=== PATIENT | female | born 1965 | race Caucasian/White ===

== ENCOUNTER 2016-07-25 11:30 | Outpatient (CLI) ==
[2015-02-06 08:04] VITALS: BMI 27.4
--- NOTE | 2016-07-25 12:21 | DI ---
EXAM: PA and lateral views of the chest HISTORY: Cough. COMPARISON: None FINDINGS: The cardiomediastinal silhouette is normal. There is no pneumothorax or pleural effusion . There is no consolidation, nodule or mass. The osseous structures are unremarkable. IMPRESSION: No acute cardiopulmonary process
== END 2016-07-25 11:31 | disposition home or self-care (01) ==
LOC: RAD 11:30
PROVIDERS: ATTEND Nurse Practitioner Family
DX: R05 Cough (principal)

== ENCOUNTER 2017-07-11 06:24 | Day surgery (SDC) ==
[2015-02-06 08:04] VITALS: BMI 27.4
[2017-07-11] MEDS ORDERED: LIDOCAINE 1% 20 ML MDV ID STA (07:04)
[2017-07-11] MEDS ORDERED: LIDOCAINE 1% 20 ML MDV ID ONE (07:15)
[2017-07-11] MEDS ORDERED: VERSED ONE (08:15)
[2017-07-11] MEDS ORDERED: DIPRIVAN 20 ML VIAL IVP ONE (08:15)
--- NOTE | 2017-07-12 08:50 | OP ---
INDICATIONS FOR PROCEDURE: 51 year old female presents for screening colonoscopy MEDICATIONS: SEE ANESTHESIA NOTES. PROCEDURE: COLONOSCOPY/SNARE POLYPECTOMY. REPORT: The risks, benefits, alternatives and limitations were discussed in detail with the patient. Informed consent was obtained. After adequate sedation was achieved, a digital rectal exam revealed good tone, no masses. The colonoscope was introduced into the rectum and advanced under direct visual guidance to the cecum. The cecum was identified by the appendiceal orifice and IC valve. I then slowly withdrew the scope in circumferential manner and examined the mucosa quite carefully. I looked on the proximal and distal sides of folds and flexures as best as possible. I was able to retroflex the scope in the right colon and the left colon to increase visualization. On the distal side of the hepatic flexure there was a sessile 6mm polyp I removed this by snare technique. In the mid to distal transverse colon there was sessile 7mm polyp and I removed this snare technique. On retroflex view of the anal canal there was a diminutive 3mm polyp that I removed by snare technique. No other abnormalities were noted. The prep time was good and the withdraw time was 12 minutes and 48 seconds. The patient tolerated the procedure well with stable vital signs and pulse oximetry throughout. IMPRESSION: 1. 3 polyps removed. RECOMMENDATIONS: 1. High fiber diet 2. Office visit as needed 3. Await pathology results if there is adenomatous changes then I recommend repeat colonoscopy examination again three years otherwise examination again in 5 years or sooner if there are any signs or symptoms to indicate otherwise. CC: Dr. Dusty GARCIA
[2017-07-12 14:29] VITALS: BP 112/56; TEMP 98.6
== END 2017-07-11 09:15 | disposition home or self-care (01) ==
LOC: SURG 06:24
PROVIDERS: ATTEND Internal Medicine Gastroenterology
DX: Z12.11 Encounter for screening for malignant neoplasm of colon (principal); D12.3 Benign neoplasm of transverse colon
CPT/HCPCS: 81025